=== PATIENT | male | born 1945 | race Caucasian/White ===

== ENCOUNTER 2016-11-23 06:31 | Emergency (ER) | payer OTHER, MEDICARE ==
[~2016-11-23] VITALS: Ht 188 cm; Wt 108.9 kg
[2016-11-23] MEDS ORDERED: SYNTHROID25 MCG PO (07:05)
--- NOTE | 2016-11-23 07:47 | ED GI/GU/ABDOMINAL COMPLAINT ---
History of Present Illness General Chief Complaint: Male Genitourinary Problems Stated Complaint: UNABLE TO URINATE X3 DAYS Source: patient Exam Limitations: no limitations Vital Signs & Intake/Output Vital Signs & Intake/Output Vital Signs Date Time Temp Pulse Resp B/P B/P Pulse O2 O2 Flow FiO2 Mean Ox Delivery Rate 11/23 0709 180/100 11/23 0640 96.6 87 19 192/104 96 Room Air Allergies Coded Allergies: Penicillins (HIVES 12/19/15) Uncoded Allergies: IVP DYE (HIVES 12/19/15) Reconcile Medications Levothyroxine Sodium (Synthroid) 25 MCG TABLET 1 TAB PO DAILY THYROID ( Reported) Triage Note: 71YO MALE TO RM 9 FROM TRIAGE W/CO DIFFICULTY URINATING X 3 DAYS. STATES "HE HAS BEEN DRIBBLING EVERY 1/2HR DURING THE NIGHT." Triage Nurses Notes Reviewed? yes Onset: Gradual Duration: day(s):, continues in ED, getting worse HPI: Patient presents for evaluation of trouble urinating over the past 3 days. Patient states that all he is been able to do is dribble urine overnight. He also experienced a suprapubic abdominal pain and fullness. He denies any prior episodes like this. He denies any known prostate issues. No associated fever or cold symptoms. Past History Travel History Traveled to [place] past 21 day No Medical History Any Pertinent Medical History? see below for history Endocrine: hypothyroidism Surgical History Surgical History: non-contributory Psychosocial History What is your primary language Luxembourger Tobacco Use: Refused to answer Family History Hx Contributory? No Review of Systems Review of Systems Constitutional: Reports: no symptoms. EENTM: Reports: no symptoms. Respiratory: Reports: no symptoms. Cardiovascular: Reports: no symptoms. GI: Reports: no symptoms. Genitourinary: Reports: see HPI. Musculoskeletal: Reports: no symptoms. Skin: Reports: no symptoms. Neurological/Psychological: Reports: no symptoms. Hematologic/Endocrine: Reports: no symptoms. Immunologic/Allergic: Reports: no symptoms. All Other Systems: Reviewed and Negative Physical Exam Physical Exam Gastrointestinal: see below Comments: Patient examined after Willams catheter placement Gen.: Well-nourished, well-developed, no acute respiratory distress. Head: Normocephalic, atraumatic. Eyes: Normal inspection bilaterally Ears: Normal inspection bilaterally Nose: Normal inspection Throat/mouth : Moist mucosa Neck: Supple, full range of motion, no goiter Heart: Regular rate and rhythm, no murmurs rubs or gallops Lungs: Clear to auscultation bilaterally with normal air entry Chest: Nontender Back: Normal range of motion Abdomen: Soft, nontender, nondistended, normal bowel sounds Extremities: Normal range of motion grossly, equal radial pulses, no cyanosis clubbing or edema Neurologic: Cranial nerves grossly intact, speech is clear Skin: warm and dry Psychiatric: Calm, cooperative, no apparent delusions or hallucinations Rectal: Somewhat large, nontender non-boggy prostate Core Measures ACS in differential dx? No Severe Sepsis Present: No Septic Shock Present: No Progress Differential Diagnosis: UTI/pyelo, prostate enlargement, prostatitis Plan of Care: Orders Procedure Date/time Status URINALYSIS 11/23 0656 Complete Laboratory Tests 11/23/16 0658: Urinalysis LIGHT H, Urine Color YEL, Urine Clarity CLEAR, Urine pH 6.5, Ur Specific [place] 1.010, Urine Protein TRACE H, Urine Ketones NEG, Urine Nitrite NEG, Urine Bilirubin NEG, Urine Urobilinogen 0.2, Ur Leukocyte Esterase NEG, Ur Microscopic SEDIMENT EXAMINED, Urine RBC 5-10 H, Ur Epithelial Cells RARE, Urine Bacteria MOD H, Urine Hemoglobin SMALL H, Urine Glucose NEG Initial ED EKG: none Departure Departure Disposition: HOME OR SELF CARE Condition: Stable Clinical Impression Primary Impression: Acute urinary retention Referrals: INDIGO WELCH,WILBERTO Pedro (PCP/Family) WES SELLERS MD Additional Instructions: Follow-up with the urologist listed for reevaluation on Saturday. Keep the Willams catheter in place until then. Notify your primary care doctor of this emergency department visit and treatment plan. Return if any concerns or sudden worsening. Thank you for choosing the [facility] Emergency Department for your care. It was a pleasure to serve you today. Lei Jones M.D. [facility] Departure Forms: Customer Survey General Discharge Information
[2016-11-23 07:52] VITALS: BP 170/70
== END 2016-11-23 08:05 ==
LOC: ERH 06:31
DX: R33.9 Retention of urine, unspecified (principal)
CPT/HCPCS: 81001

== ENCOUNTER 2016-11-27 11:25 | Inpatient (IN) | payer OTHER, MEDICARE ==
[~2016-11-27] VITALS: Ht 182.9 cm; Wt 108.9 kg
[~2016-11-27 11:25] MED LIST: SYNTHROID25 MCG PO
--- NOTE | 2016-11-27 11:31 | NUR ---
SENT BY MARLO BLANKENSHIP FOR ADMISSION (DX: UROSEPSIS) PT HAS STRICKLAND CATHETER IN PLACE, INSERTED BY DR. SELLERS TODAY. C/O RLQ ABDOMINAL PAIN, STATES HE WAS UNABLE TO URINATE X 5 DAYS.
--- NOTE | 2016-11-27 11:37 | NUR ---
MEDICATED FOR FEVER WITH MOTRIN 600 MG (PT REQUEST).
--- NOTE | 2016-11-27 11:49 | NUR ---
PT TO ROOM 10 VIA W/C. ASSISTED TO STRETCHER. AWAITING EVAL. Informed waiting has been performed.
--- NOTE | 2016-11-27 12:13 | NUR ---
LABS DRAWN AND SENT BY THIS MST BLUE, SST, LAV, PINK, BRANDON 1ST SET OF CULTURES
--- NOTE | 2016-11-27 12:16 | ED GI/GU/ABDOMINAL COMPLAINT ---
History of Present Illness General Chief Complaint: Male Genitourinary Problems Stated Complaint: UNABLE TO URINATE Source: patient, family, old records Exam Limitations: no limitations Allergies Coded Allergies: Penicillins (HIVES 12/19/15) Uncoded Allergies: IVP DYE (HIVES 12/19/15) Triage Note: SENT BY MARLO BLANKENSHIP FOR ADMISSION (DX: UROSEPSIS) PT HAS STRICKLAND CATHETER IN PLACE, INSERTED BY DR. VALENCIA TODAY. C/O RLQ ABDOMINAL PAIN, STATES HE WAS UNABELT O URINATE X 5 DAYS. Triage Nurses Notes Reviewed? yes Onset: Gradual Duration: day(s):, continues in ED, getting worse Quality/Severity: moderate, severe HPI: Patient presents at the request of his urologist for admission for urinary tract infection. Patient followed up with a urologist after an emergency department visit for acute urinary retention. The patient keeping the Strickland catheter in place at that point. Upon follow-up the urologist felt he was becoming infected due to chills/rigors during the examination. (LUCIA WELCH,NORMAN Nuñez) Vital Signs & Intake/Output Vital Signs & Intake/Output ED Intake and Output 12/01 0000 11/30 1200 Intake Total 300 Output Total 800 1300 Balance -800 -1000 Intake, Oral 300 Output, Urine 800 1300 Reconcile Medications Ciprofloxacin HCl (Cipro) 500 MG TABLET 500 MG PO BID ANTIBIOTIC, INFECTION Docusate Sodium 100 MG CAPSULE 100 MG PO BIDP CONSTIPATION Levothyroxine Sodium (Synthroid) 25 MCG TABLET 1 TAB PO DAILY THYROID ( Reported) Oxycodone HCl/Acetaminophen (Percocet 10-325 MG Tablet) 10 MG-325 MG TABLET 1 TAB PO 4 TIMES/DAY PAIN CONTROL Tamsulosin HCl (Flomax) 0.4 MG CAP.ER.24H 1 CAP PO BID PROSTATE (Reported) (LUANA WELCH,JOSE ENRIQUE Sethi) Past History Travel History Traveled to [place] past 21 day No Medical History Any Pertinent Medical History? see below for history Renal: benign prost hyperplasia Endocrine: hypothyroidism Surgical History Surgical History: non-contributory Psychosocial History What is your primary language Occitan Tobacco Use: Current Daily Use Daily Tobacco Use Amount/Type: => 5 Cigarettes daily ETOH Use: occasional use Family History Hx Contributory? No (LUCIA WELCH,NORMAN Nuñez) Review of Systems Review of Systems Constitutional: Reports: no symptoms. EENTM: Reports: no symptoms. Respiratory: Reports: no symptoms. Cardiovascular: Reports: no symptoms. GI: Reports: no symptoms. Genitourinary: Reports: see HPI. Musculoskeletal: Reports: no symptoms. Skin: Reports: no symptoms. Neurological/Psychological: Reports: no symptoms. Hematologic/Endocrine: Reports: no symptoms. Immunologic/Allergic: Reports: no symptoms. All Other Systems: Reviewed and Negative (LUCIA WELCH,NORMAN Nuñez) Physical Exam Physical Exam Gastrointestinal: see below Comments: Gen.: Well-nourished, well-developed, no acute respiratory distress. Head: Normocephalic, atraumatic. Eyes: Normal inspection bilaterally Ears: Normal inspection bilaterally Nose: Normal inspection Throat/mouth : Moist mucosa Neck: Supple, full range of motion, no goiter Heart: Regular rate and rhythm, no murmurs rubs or gallops Lungs: Clear to auscultation bilaterally with normal air entry Chest: Nontender Back: Normal range of motion Abdomen: Soft, nontender, nondistended, normal bowel sounds Extremities: Normal range of motion grossly, equal radial pulses, no cyanosis clubbing or edema Neurologic: Cranial nerves grossly intact, speech is clear Skin: warm and dry Psychiatric: Calm, cooperative, no apparent delusions or hallucinations Core Measures ACS in differential dx? No Severe Sepsis Present: No Septic Shock Present: No (LUCIA WELCH,NORMAN Nuñez) Progress Differential Diagnosis: UTI/pyelo Plan of Care: Orders Procedure Date/time Status Discharge Patient 11/30 UNK Active Initial ED EKG: NSR, rate (76) Comments: 1416: Patient treated with IV fluids, IV acetaminophen for fever and IV antibiotics for urinary tract infection with bacteremia. Patient has been evaluated by Dr. Valencia in the emergency department. Patient blood pressure remains normal and he has now defervesced. (LUCIA WELCH,NORMAN Nuñez) Comments: RECEIVED A CALL FROM LAB, 2:2 BLOOD CULTURES GNR. PT IS ON ABX (LUANA WELCH,JOSE ENRIQUE Sethi) Departure Departure Disposition: STILL A PATIENT Condition: Stable Clinical Impression Primary Impression: Urinary tract infection Qualifiers: Urinary tract infection type: site unspecified Hematuria presence: without hematuria Qualified Code: N39.0 - Urinary tract infection, site not specified Secondary Impressions: Bacteremia, Prostate enlargement Referrals: INDIGO WELCH,WILBERTO Pedro (PCP/Family) Departure Forms: Customer Survey General Discharge Information Admission Note Spoke With: WES VALENCIA MD Documentation of Exam: Documentation of any treatments & extenuating circumstances including Concerns Regarding Discharge (functional status, medication knowledge or non-compliance, living conditions, etc.) that warrant an admission rather than observation: Patient has had a second episode of acute urinary retention requiring Strickland catheter placement by his urologist. The patient also presents with a fever and a strong suspicion of a urinary tract infection with bacteremia. This places the patient at high risk of sepsis, overwhelming infection hypotension and . He requires an aggressive management with IV antibiotics continued Strickland catheterization and clinical monitoring of vital signs. The patient's urinary retention is very likely secondary to prostate enlargement and this will need to be addressed to prevent future urinary retention and infection. (LUCIA WELCH,NORMAN Nuñez) Departure Prescriptions: Current Visit Scripts Ciprofloxacin HCl (Cipro) 500 MG PO BID #30 Docusate Sodium 100 MG PO BIDP #30 Oxycodone HCl/Acetaminophen (Percocet 10-325 MG Tablet) 1 TAB PO 4 TIMES/DAY #20 TAB (LUANA WELCH,JOSE ENRIQUE Sethi) Critical Care Note Critical Care Note Critical Care Time: 30-74 min (LUCIA WELCH,NORMAN Nuñez) Laboratory Tests 11/27/16 1605: Anion Gap 9, Estimated GFR > 60, BUN/Creatinine Ratio 18.9, Lactic Acid 1.0 11/27/16 1444: Lactic Acid Cancelled 11/27/16 1205: Urinalysis LIGHT H, Urine Color YEL, Urine Clarity HAZY H, Urine pH 6.0, Ur Specific [place] 1.025, Urine Protein 100 H, Urine Ketones 15 H, Urine Nitrite POS H, Urine Bilirubin NEG, Urine Urobilinogen 1.0, Ur Leukocyte Esterase MOD H, Ur Microscopic SEDIMENT EXAMINED, Urine RBC 5-10 H, Urine WBC > 75 H, Ur Epithelial Cells FEW, Urine Bacteria MANY H, Urine Mucus RARE, Urine Hemoglobin MOD H, Urine Glucose NEG 11/27/16 1200: Anion Gap 9, Estimated GFR > 60, BUN/Creatinine Ratio 20.0, Glucose 112 H, Lactic Acid 1.3, Calcium 8.7, Total Bilirubin 0.9, AST 23, ALT 33, Alkaline Phosphatase 73, Total Protein 6.4, Albumin 3.5, Globulin 2.9, Albumin/Globulin Ratio 1.2, CBC w Diff MAN DIFF ORDERED, RBC 4.34 L, MCV 91.5, MCH 30.8, RDW 14.3, MPV 9.2, Gran % 90.2 H, Lymphocytes % 3.6 L, Monocytes % 6.0, Eosinophils % 0, Basophils % 0.2, Absolute Granulocytes 15.5 H, Segmented Neutrophils 91 H, Band Neutrophils 1, Absolute Lymphocytes 0.6 L, Lymphocytes 3 L, Monocytes 5, Absolute Monocytes 1.0 H, Absolute Eosinophils 0, Absolute Basophils 0, Platelet Estimate VERIFIED BY SMEAR, Normocytic RBCs VERIFIED, Normochromic RBCs VERIFIED, PUBS MCHC 33.7 Microbiology 11/27 1216 URINE ROUT: Urine Culture - ORD 11/27 120 BLOOD: Blood Culture - RECD 11/27 120 BLOOD: Blood Culture - RECD Initial ED EKG: NSR, rate (76) Comments: 1416: Patient treated with IV fluids, IV acetaminophen for fever and IV antibiotics for urinary tract infection with bacteremia. Patient has been evaluated by Dr. Valencia in the emergency department. Patient blood pressure remains normal and he has now defervesced. (LUCIA WELCH,NORMAN Nuñez) Comments: RECEIVED A CALL FROM LAB, 2:2 BLOOD CULTURES GNR. PT IS ON ABX (LUANA WELCH,JOSE ENRIQUE Sethi) Departure Departure Disposition: STILL A PATIENT Condition: Stable Clinical Impression Primary Impression: Urinary tract infection Qualifiers: Urinary tract infection type: site unspecified Hematuria presence: without hematuria Qualified Code: N39.0 - Urinary tract infection, site not specified Secondary Impressions: Bacteremia, Prostate enlargement Referrals: WILBERTO SOOD MD (PCP/Family) Departure Forms: Customer Survey General Discharge Information Admission Note Spoke With: WES VALENCIA MD Documentation of Exam: Documentation of any treatments & extenuating circumstances including Concerns Regarding Discharge (functional status, medication knowledge or non-compliance, living conditions, etc.) that warrant an admission rather than observation: Patient has had a second episode of acute urinary retention requiring Stirckland catheter placement by his urologist. The patient also presents with a fever and a strong suspicion of a urinary tract infection with bacteremia. This places the patient at high risk of sepsis, overwhelming infection hypotension and . He requires an aggressive management with IV antibiotics continued Strickland catheterization and clinical monitoring of vital signs. The patient's urinary retention is very likely secondary to prostate enlargement and this will need to be addressed to prevent future urinary retention and infection. (LUCIA WELCH,NORMAN Nuñez) Critical Care Note Critical Care Note Critical Care Time: 30-74 min (LUCIA WELCH,NORMAN Nuñez)
[2016-11-27 12:21] LABS: ABSOLUTE BASOPHIL COUNT 0 /CUMM (0.0-0.2); ABSOLUTE EOSINOPHIL COUNT 0 /CUMM (0.0-0.7); ABSOLUTE GRANULOCYTE CT 15.5 /CUMM (1.4-6.5); ABSOLUTE LYMPH COUNT 0.6 /CUMM (1.2-3.4); BASOPHIL % 0.2 % (0.0-2.0); EOSINOPHIL % 0 % (0-5); GRANULOCYTE % 90.2 % (42.2-75.2); HEMATOCRIT 39.7 % (42-52); MEAN CORPUSCULAR HGB 30.8 PG (27.0-31.0); MEAN CORPUSCULAR HGB CONC 33.7 G/DL (33.0-37.0); MEAN CORPUSCULAR VOLUME 91.5 FL (80.0-94.0); MEAN PLATELET VOLUME 9.2 FL (7.4-10.4); PLATELET COUNT 139 /CUMM (130-400); RBC DISTRIBUTION WIDTH 14.3 % (11.5-14.5); RED BLOOD CELL CT 4.34 /CUMM (4.70-6.10); WHITE BLOOD CELL COUNT 17.2 /CUMM (4.8-10.8)
[2016-11-27] MEDS ORDERED: FLOMAX0.4 M1 PO (12:55)
--- NOTE | 2016-11-27 13:05 | NUR ---
PT STATES HE TAKES FLOMAX BID, BREAKFAST AND DINNER TIME.
--- NOTE | 2016-11-27 13:14 | NUR ---
PT ASKING FOR LUNCH. OK TO EAT PER DR MYERS. LUNCH ORDERED.
--- NOTE | 2016-11-27 14:15 | NUR ---
PLAN IS FOR ADMISSION. Informed waiting has been performed. REMAINS AT BEDSIDE. PT TOLERATED LUNCH TRAY WELL.
--- NOTE | 2016-11-27 15:15 | NUR ---
REPORT HANDED OFF TO ELMER SAHNI.
--- NOTE | 2016-11-27 15:58 | NUR ---
MEAL TRAY DELIVERED
--- NOTE | 2016-11-27 16:12 | NUR ---
EKG , REPEAT LABS DONE
--- NOTE | 2016-11-27 16:23 | Cons- Urology ---
General Information and HPI Consulting Request Date of Consult: 11/27/16 Requested By: MD LUCIA, LORA Reason for Consult: UROSEPSIS WITH RIGORS/URINARY RETENTION Source of Information: patient, family, old records Exam Limitations: no limitations History of Present Illness: 71YR OLD WITH RECENT RETENTION: VT FAILED AND TAUGHT SELF CATH. TODAY NOTED FEVER/CHILLS/RIGOR WITH RETENTION. ADMIT FOR IV ABX, STRICKLAND AND HYDRATION. Allergies/Medications Allergies: Coded Allergies: Penicillins (HIVES 12/19/15) Uncoded Allergies: IVP DYE (HIVES 12/19/15) Home Med List: Levothyroxine Sodium (Synthroid) 25 MCG TABLET 1 TAB PO DAILY THYROID ( Reported) Tamsulosin HCl (Flomax) 0.4 MG CAP.ER.24H 1 CAP PO BID PROSTATE (Reported) Current Medications: Current Medications Sig/Cricket Start time Last Medication Dose Route Stop Time Status Admin Acetaminophen 650 MG Q6PRN PRN 11/27 1530 AC PO Acetaminophen 1,000 MG ONCE ONE 11/27 1245 DC 11/27 N/A 1 UNIT IV 11/27 1259 1250 Acetaminophen 0 .STK-MED ONE 11/27 1242 DC IV Al Hydroxide/Mg 30 ML Q6P PRN 11/27 1530 AC Hydroxide PO Ceftriaxone Sodium 0 .STK-MED ONE 11/27 1242 DC .ROUTE Ceftriaxone Sodium 1,000 MG ONCE ONE 11/27 1230 DC 11/27 IV 11/27 1231 1250 Dextrose/Sodium 1,000 ML .Q8H 11/27 1530 AC Chloride IV Docusate Sodium 100 MG DAILY 11/28 1000 AC PO Ibuprofen 600 MG ONCE ONE 11/27 1145 DC 11/27 PO 11/27 1146 1139 Levothyroxine Sodium 0.2 MG DAILY AC 11/28 0700 AC PO Morphine Sulfate 10 MG Q4P PRN 11/27 1530 AC IV Multivitamins 1 TAB DAILY 11/27 1523 AC PO Sodium Chloride 1,000 ML BOLUS ONE 11/27 1230 DC 11/27 IV 11/27 1429 1228 Trimethoprim/ 10 ML ONCE ONE 11/27 1215 CAN Sulfamethoxazole IV 11/27 1216 Zolpidem Tartrate 5 MG AT BEDTIME NEED.. 11/27 1530 AC PO Past History Medical History Blood Transfusion Hx: No Renal: benign prost hyperplasia Endocrine: hypothyroidism Surgical History Pertinent Surgical History: non-contributory Psychosocial History Where Do You Live? Home Who Do You Live With? spouse Services at Home: None Primary Language: Wallisian Smoking Status: Never Smoked ETOH Use: occasional use Functional Ability ADLs Independent: dressing, eating, toileting, bathing. Ambulation: independent IADLs Independent: shopping, housework, finances, food prep, telephone, transportation , medication admin. Employment History Employment: Retired Retired? unknown Review of Systems Review of Systems Constitutional: Reports: see HPI, chills, diaphoresis, fever, weakness. EENTM: Denies: no symptoms. Cardiovascular: Denies: no symptoms. Respiratory: Denies: no symptoms. GI: Denies: no symptoms. Genitourinary: Reports: see HPI, dysuria, hesitation, pain. Musculoskeletal: Reports: muscle pain, muscle stiffness. Skin: Reports: see HPI. Exam & Diagnostic Data Vital Signs and I&O Vital Signs Date Time Temp Pulse Resp B/P B/P Pulse O2 O2 Flow FiO2 Mean Ox Delivery Rate 11/27 1618 98.4 73 20 118/57 96 Room Air 11/27 1413 99.3 84 20 98/62 94 Room Air 11/27 1320 100.8 11/27 1320 100.8 11/27 1250 102.0 11/27 1229 102.0 11/27 1228 102.0 11/27 1139 101.3 11/27 1132 101.3 118 20 153/81 95 Room Air Intake & Output 11/27 1600 11/27 0800 11/27 0000 / 1600 11/26 0800 11/26 0000 Intake Total Output Total 500 Balance -500 Output, Urine 500 Patient 240 lb Weight Weight Reported by Patient Measurement Method Physical Exam General Appearance: well developed/nourished, moderate distress Head: atraumatic Eyes: Bilateral: normal appearance. Ears, Nose, Throat: normal pharynx Neck: normal inspection, supple, full range of motion Respiratory: normal breath sounds Cardiovascular: regular rate/rhythm Rectal: normal exam Back: no vertebral tenderness Extremities: normal inspection Skin: intact, normal color, diaphoresis Reproductive: Normal male genitalia Last 24 Hours of Labs: Laboratory Tests 11/27 11/27 11/27 1605 1444 1205 Chemistry Sodium Pending Potassium Pending Chloride Pending Carbon Dioxide Pending Anion Gap Pending BUN Pending Creatinine Pending BUN/Creatinine Ratio Pending Lactic Acid Pending Cancelled Urines Urinalysis LIGHT H Urine Color (YEL,AMB,STR) YEL Urine Clarity (CLEAR) HAZY H Urine pH (5.0 - 8.0) 6.0 Ur Specific [place] (1.001 - 1.035) 1.025 Urine Protein (NEG,<30 MG/DL) 100 H Urine Ketones (NEG) 15 H Urine Nitrite (NEG) POS H Urine Bilirubin (NEG) NEG Urine Urobilinogen (0.1 - 1.0 EU/dl) 1.0 Ur Leukocyte Esterase (NEG) MOD H Ur Microscopic SEDIMENT EXAMINED Urine RBC (0 - 5 /HPF) 5-10 H Urine WBC (0 - 2 /HPF) > 75 H Ur Epithelial Cells (NONE,FEW) FEW Urine Bacteria (NEG/NONE) MANY H Urine Mucus (FEW,NONE) RARE Urine Hemoglobin (NEG) MOD H Urine Glucose (N MG/DL) NEG 11/27 1200 Chemistry Sodium (137 - 145 mmol/L) 135 L Potassium (3.5 - 5.1 mmol/L) 3.8 Chloride (98 - 107 mmol/L) 103 Carbon Dioxide (22 - 30 mmol/L) 24 Anion Gap (5 - 16) 9 BUN (9 - 20 mg/dL) 18 Creatinine (0.7 - 1.2 mg/dL) 0.9 Estimated GFR (>60 ml/min) > 60 BUN/Creatinine Ratio (7 - 25 %) 20.0 Glucose (65 - 99 mg/dL) 112 H Lactic Acid (0.7 - 2.1 mmol/L) 1.3 Calcium (8.4 - 10.2 mg/dL) 8.7 Total Bilirubin (0.2 - 1.3 mg/dL) 0.9 AST (17 - 59 U/L) 23 ALT (21 - 72 U/L) 33 Alkaline Phosphatase (< 127 U/L) 73 Total Protein (6.3 - 8.2 g/dL) 6.4 Albumin (3.5 - 5.0 g/dL) 3.5 Globulin (1.9 - 4.2 gm/dL) 2.9 Albumin/Globulin Ratio (1.1 - 2.2 %) 1.2 Hematology CBC w Diff MAN DIFF ORDERED WBC (4.8 - 10.8 /CUMM) 17.2 H RBC (4.70 - 6.10 /CUMM) 4.34 L Hgb (14.0 - 18.0 G/DL) 13.4 L Hct (42 - 52 %) 39.7 L MCV (80.0 - 94.0 FL) 91.5 MCH (27.0 - 31.0 PG) 30.8 RDW (11.5 - 14.5 %) 14.3 Plt Count (130 - 400 /CUMM) 139 MPV (7.4 - 10.4 FL) 9.2 Gran % (42.2 - 75.2 %) 90.2 H Lymphocytes % (20.5 - 51.1 %) 3.6 L Monocytes % (1.7 - 9.3 %) 6.0 Eosinophils % (0 - 5 %) 0 Basophils % (0.0 - 2.0 %) 0.2 Absolute Granulocytes (1.4 - 6.5 /CUMM) 15.5 H Segmented Neutrophils (42.2 - 75.2 %) 91 H Band Neutrophils (0.0 - 5.0 %) 1 Absolute Lymphocytes (1.2 - 3.4 /CUMM) 0.6 L Lymphocytes (20.5 - 51.1 %) 3 L Monocytes (1.7 - 9.3 %) 5 Absolute Monocytes (0.10 - 0.60 /CUMM) 1.0 H Absolute Eosinophils (0.0 - 0.7 /CUMM) 0 Absolute Basophils (0.0 - 0.2 /CUMM) 0 Platelet Estimate (ADEQUATE) VERIFIED BY SMEAR Normocytic RBCs VERIFIED Normochromic RBCs VERIFIED PUBS MCHC (33.0 - 37.0 G/DL) 33.7 Assessment/Plan Assessment/Plan UROSEPSIS: RIGORS: ADMIT FOR IV ABX/HYDRATION Copies To: WES SELLERS MD Consult Acknowledgment - Thank you for your consult request. Attending MD Review Statement Attending Statement Attending MD Statement: examined this patient Attending Assessment/Plan: UROSEPSIS WITH RETENTION
--- NOTE | 2016-11-27 16:30 | NUR ---
PT TO US VIA STRETCHER,
--- NOTE | 2016-11-27 17:31 | ULTRASOUND REPORT ---
EXAMINATION: US RETROPERITONEAL COMPLETE (RENAL) CLINICAL INFORMATION: Fever and rigors. COMPARISON: None. TECHNIQUE: Real-time imaging of the kidneys and bladder. FINDINGS: RIGHT KIDNEY: 12.1 x 8.2 x 7.2 cm (SAG x AP x TRV). The kidney is normal in size, contour, and echogenicity. Renal cortical thickness is normal. No calculi or focal parenchymal lesions. No hydronephrosis. LEFT KIDNEY: 12.9 x 6.5 x 5.5 cm (SAG x AP x TRV). The kidney is normal in size, contour, and echogenicity. Renal cortical thickness is normal. No calculi or focal parenchymal lesions. No hydronephrosis. BLADDER: The urinary bladder is decompressed by an indwelling Willams catheter, limiting evaluation. Bladder wall thickening is entirely nonspecific and may be secondary to underdistention although superimposed infection or inflammation of the urinary bladder cannot be excluded given patient symptomatology. PROSTATE: The prostate gland measures approximately 5.3 x 6.2 x 5.2 cm, corresponding to a volume of 88.5 mL. IMPRESSION: 1. The bilateral kidneys appear unremarkable. There is no appreciable hydronephrosis of either kidney. 2. The urinary bladder is decompressed by an indwelling Willams catheter, limiting evaluation. 3. Prominent prostate gland measuring 5.3 x 6.2 x 5.2 cm.
--- NOTE | 2016-11-27 19:17 | NUR ---
REPORT RECIEVED FROM ELMER WILLIAM, PRIMARY CARE ASSUMED. PT MEDICATED WITH 1 MULTIVITAMIN TAB, TOLERATED WELL.
--- NOTE | 2016-11-27 19:36 | NUR ---
PT MEDICATED WITH D5 1/2 NS AT 125MLS/HR PER EMAR
--- NOTE | 2016-11-27 20:25 | NUR ---
INFORMED BY ELICEO LINARES THAT PT TEMP IS 100.2, HOUSE STAFF NOTIFIED
--- NOTE | 2016-11-28 04:26 | NUR ---
[address] CRAFT THAT PT'S URINE CULTURE GROWING GRAM NEGATIVE RODS
[2016-11-28 07:52] VITALS: BP 138/64
--- NOTE | 2016-11-28 09:30 | NUR ---
NOTIFIED DR SELLERS OF ORAL TEMP = 100.8. PER ATTENDING GIVE TYLENOL PO AT THIS TIME.
--- NOTE | 2016-11-28 11:05 | Cons- Infect Disease ---
General Information and HPI Consulting Request Date of Consult: 11/28/16 Requested By: WES SELLERS MD Reason for Consult: Sepsis of urologic origin Source of Information: patient, old records Exam Limitations: confusion History of Present Illness: This is a 71-year-old man with a history of hypothyroidism, seen in the emergency room 4 days prior to admission because of difficulty voiding, with insertion of a Willams catheter yielding 1100 mL, with urinalysis revealing 5-10 RBC's, discharged without a Willams catheter secondary to patient's request, seen by Urology as an outpatient and instructed to self catheterize, admitted on November 27 after he was referred back to the emergency room because of right lower quadrant pain and rigors, with a Willams catheter inserted by his urologist earlier in the day. On admission he was febrile to 101.3. Laboratory data revealed a white blood cell count of 17,000, BUN/creatinine 18 and 0.9, with normal liver enzymes. Urinalysis 5-10 RBC/greater than 75 WBCs. A renal ultrasound revealed a prominent prostate with no hydronephrosis. He was begun on Ceftriaxone. He did spike to 103.8 overnight but his temperatures are lower grade this morning. He feels improved with decreased abdominal discomfort but does note right scrotal pain and swelling. Allergies/Medications Allergies: Coded Allergies: Penicillins (HIVES 12/19/15) Uncoded Allergies: IVP DYE (HIVES 12/19/15) Home Med List: Levothyroxine Sodium (Synthroid) 25 MCG TABLET 1 TAB PO DAILY THYROID ( Reported) Tamsulosin HCl (Flomax) 0.4 MG CAP.ER.24H 1 CAP PO BID PROSTATE (Reported) Past History Travel History Traveled to [place] past 21 day No Medical History Blood Transfusion Hx: No Endocrine: hypothyroidism History of MRSA: No History of VRE: No History of CDIFF: No Isolation History: Standard Surgical History Surgical History: right upper ext surgery, pilonidal cyst Psychosocial History Where Do You Live? Home Who Do You Live With? spouse Services at Home: None Primary Language: Azeri Smoking Status: Never Smoked ETOH Use: occasional use Functional Ability ADLs Independent: dressing, eating, toileting, bathing. Ambulation: independent IADLs Independent: shopping, housework, finances, food prep, telephone, transportation , medication admin. Employment History Employment: Retired Review of Systems Review of Systems Cardiovascular: Denies: chest pain. Respiratory: Denies: cough, short of breath. GI: Denies: diarrhea, nausea, vomiting. Genitourinary: Reports: hesitation. Denies: dysuria. All Other Systems: Reviewed and Negative Exam & Diagnostic Data Last 24 Hrs of Vital Signs/I&O Vital Signs Date Time Temp Pulse Resp B/P B/P Pulse O2 O2 Flow FiO2 Mean Ox Delivery Rate 11/28 0939 100.8 11/28 0752 100.8 86 20 138/64 95 Room Air 11/28 0242 Room Air 11/28 0238 100.8 11/28 0010 103.8 11/27 2023 100.2 86 20 155/70 95 Room Air 11/27 1618 98.4 73 20 118/57 96 Room Air 11/27 1413 99.3 84 20 98/62 94 Room Air 11/27 1320 100.8 11/27 1320 100.8 11/27 1250 102.0 11/27 1229 102.0 11/27 1228 102.0 11/27 1139 101.3 11/27 1132 101.3 118 20 153/81 95 Room Air Intake & Output 11/28 1600 11/28 0800 11/28 0000 Intake Total 1010 Output Total 700 1100 Balance 310 -1100 Intake, IV 1010 Output, Urine 700 1100 Patient 239 lb Weight Weight Reported by Patient Measurement Method Physical Exam Other Physical Findings: He is awake and alert in no acute distress. MAXIMUM TEMPERATURE 103.8. Skin reveals no rash. HEENT exam is negative. Neck is supple with no adenopathy. Lungs bibasilar crackles. Heart regular rhythm with no murmur. Abdomen is obese, soft, mild tenderness over the right lower quadrant/suprapubic area, with positive bowel sounds. Back no CVA tenderness. Extremities no cyanosis, clubbing or edema. Neuro is without focality. right scrotal swelling and tenderness. Last 24 Hours of Lab Results: Laboratory Tests 11/28 11/27 11/27 0604 1605 1444 Chemistry Sodium (137 - 145 mmol/L) 136 L 138 Potassium (3.5 - 5.1 mmol/L) 3.6 3.7 Chloride (98 - 107 mmol/L) 105 106 Carbon Dioxide (22 - 30 mmol/L) 24 23 Anion Gap (5 - 16) 8 9 BUN (9 - 20 mg/dL) 16 17 Creatinine (0.7 - 1.2 mg/dL) 0.9 0.9 Estimated GFR (>60 ml/min) > 60 > 60 BUN/Creatinine Ratio (7 - 25 %) 17.8 18.9 Lactic Acid (0.7 - 2.1 mmol/L) 1.0 Cancelled 11/27 1205 Urines Urinalysis LIGHT H Urine Color (YEL,AMB,STR) YEL Urine Clarity (CLEAR) HAZY H Urine pH (5.0 - 8.0) 6.0 Ur Specific Currie (1.001 - 1.035) 1.025 Urine Protein (NEG,<30 MG/DL) 100 H Urine Ketones (NEG) 15 H Urine Nitrite (NEG) POS H Urine Bilirubin (NEG) NEG Urine Urobilinogen (0.1 - 1.0 EU/dl) 1.0 Ur Leukocyte Esterase (NEG) MOD H Ur Microscopic SEDIMENT EXAMINED Urine RBC (0 - 5 /HPF) 5-10 H Urine WBC (0 - 2 /HPF) > 75 H Ur Epithelial Cells (NONE,FEW) FEW Urine Bacteria (NEG/NONE) MANY H Urine Mucus (FEW,NONE) RARE Urine Hemoglobin (NEG) MOD H Urine Glucose (N MG/DL) NEG 11/27 1200 Chemistry Sodium (137 - 145 mmol/L) 135 L Potassium (3.5 - 5.1 mmol/L) 3.8 Chloride (98 - 107 mmol/L) 103 Carbon Dioxide (22 - 30 mmol/L) 24 Anion Gap (5 - 16) 9 BUN (9 - 20 mg/dL) 18 Creatinine (0.7 - 1.2 mg/dL) 0.9 Estimated GFR (>60 ml/min) > 60 BUN/Creatinine Ratio (7 - 25 %) 20.0 Glucose (65 - 99 mg/dL) 112 H Lactic Acid (0.7 - 2.1 mmol/L) 1.3 Calcium (8.4 - 10.2 mg/dL) 8.7 Total Bilirubin (0.2 - 1.3 mg/dL) 0.9 AST (17 - 59 U/L) 23 ALT (21 - 72 U/L) 33 Alkaline Phosphatase (< 127 U/L) 73 Total Protein (6.3 - 8.2 g/dL) 6.4 Albumin (3.5 - 5.0 g/dL) 3.5 Globulin (1.9 - 4.2 gm/dL) 2.9 Albumin/Globulin Ratio (1.1 - 2.2 %) 1.2 Hematology CBC w Diff MAN DIFF ORDERED WBC (4.8 - 10.8 /CUMM) 17.2 H RBC (4.70 - 6.10 /CUMM) 4.34 L Hgb (14.0 - 18.0 G/DL) 13.4 L Hct (42 - 52 %) 39.7 L MCV (80.0 - 94.0 FL) 91.5 MCH (27.0 - 31.0 PG) 30.8 RDW (11.5 - 14.5 %) 14.3 Plt Count (130 - 400 /CUMM) 139 MPV (7.4 - 10.4 FL) 9.2 Gran % (42.2 - 75.2 %) 90.2 H Lymphocytes % (20.5 - 51.1 %) 3.6 L Monocytes % (1.7 - 9.3 %) 6.0 Eosinophils % (0 - 5 %) 0 Basophils % (0.0 - 2.0 %) 0.2 Absolute Granulocytes (1.4 - 6.5 /CUMM) 15.5 H Segmented Neutrophils (42.2 - 75.2 %) 91 H Band Neutrophils (0.0 - 5.0 %) 1 Absolute Lymphocytes (1.2 - 3.4 /CUMM) 0.6 L Lymphocytes (20.5 - 51.1 %) 3 L Monocytes (1.7 - 9.3 %) 5 Absolute Monocytes (0.10 - 0.60 /CUMM) 1.0 H Absolute Eosinophils (0.0 - 0.7 /CUMM) 0 Absolute Basophils (0.0 - 0.2 /CUMM) 0 Platelet Estimate (ADEQUATE) VERIFIED BY SMEAR Normocytic RBCs VERIFIED Normochromic RBCs VERIFIED PUBS MCHC (33.0 - 37.0 G/DL) 33.7 Last 24 Hours of Rudolph Results: Blood culture 2 November 27 1 bottle positive for gram-negative rods Urine culture November 27 greater than 100,000 colonies of gram-negative rods Diagnostic Data Recent Imaging Findings: Renal ultrasound November 27 reveals a prominent prostate with no hydronephrosis Assessment/Plan Assessment/Plan Impression: This is a 71-year-old man with a history of hypothyroidism admitted on November 27 with urinary retention, for which a Willams catheter was inserted by his urologist earlier in the day, right lower quadrant abdominal pain and rigors, found to be febrile with leukocytosis and now found to have blood and urine cultures positive for gram-negative rods. His clinical picture is consistent with sepsis of urologic origin. He does have right scrotal inflammation raising concern for an epididymoorchitis, which may warrant further evaluation. He also have bibasilar crackles and a chest x-ray should be obtained. Suggestion: 1. Ultrasound of the scrotum 2. Would obtain a chest x-ray 3. Follow-up final cultures 4. Continue Ceftriaxone 1 g IV every 24 hours pending above Consult Acknowledgment - Thank you for your consult request.
--- NOTE | 2016-11-28 13:55 | NUR ---
TO XRAY FOR CXR. SPOUSE AND PATIENT NOTIFIED OF PLAN OF CARE.
--- NOTE | 2016-11-28 14:15 | RADIOLOGY REPORT ---
EXAMINATION: XR CHEST CLINICAL INFORMATION: Sepsis. COMPARISON: 01/07/2012 TECHNIQUE: 2 views of the chest were obtained. FINDINGS: Lungs are well expanded and clear. No evidence of pneumonia or pleural effusion. Cardiac silhouette is normal in size. Mediastinal, hilar and diaphragmatic contours are normal. The bones are unremarkable. IMPRESSION: No acute cardiopulmonary disease.
--- NOTE | 2016-11-28 14:57 | ULTRASOUND REPORT ---
EXAMINATION: US SCROTUM CLINICAL INFORMATION: Right-sided scrotal mass. Epididymitis. COMPARISON: None TECHNIQUE: A sonogram of the scrotum was performed assessing marino-scale appearance and color Doppler flow. FINDINGS: RIGHT: The right testicle, which is larger than the left, measures 4.2 x 3 x 3.5 cm, volume of 31 mL. Color Doppler images show diffuse hypervascularity of the testicle, consistent with orchitis. No focal testicular lesion. The epididymis is diffusely thickened, heterogeneous and hypervascular, consistent with epididymitis. Small, 0.4 cm cyst is present within the epididymal head. A moderate right hydrocele contains multiple septations. LEFT: The left testicle measures 4.3 x 2.2 x 2.7 cm, volume of 18 mL. Color Doppler images with spectral waveforms show presence of normal arterial flow within the testicle. No focal testicular lesion. A 0.5 cm cyst is present within the left epididymal head. Otherwise, the left epididymis is unremarkable. Small left hydrocele is noted. IMPRESSION: 1. Right-sided epididymoorchitis associated with a complex hydrocele or pyocele. 2. Small cysts within each epididymal head (0.4 cm on the right and 0.5 cm on the left).
[2016-11-28 16:45] VITALS: BP 146/65
--- NOTE | 2016-11-28 21:16 | NUR ---
PT HAS A BED 225-1
[2016-11-28 21:17] VITALS: BP 146/73
[2016-11-28 22:31] VITALS: BP 140/70
--- NOTE | 2016-11-28 22:51 | NUR ---
PATEINT ADMITTED VIA STRETCHER. ORIENTED TO ROOM , CALL MYERS, STAFF ETC. A/O X 3. RA. LCTA. SKIN CDI. STRICKLAND. IV FLUIDS RUNNING ORDERED. VSS. WILL CONTINUE TO MONITOR.
[2016-11-29 06:25] VITALS: BP 146/80
[2016-11-29 08:23] LABS: ABSOLUTE BASOPHIL COUNT 0 /CUMM (0.0-0.2); ABSOLUTE EOSINOPHIL COUNT 0.4 /CUMM (0.0-0.7); ABSOLUTE GRANULOCYTE CT 7.3 /CUMM (1.4-6.5); BASOPHIL % 0.3 % (0.0-2.0); EOSINOPHIL % 3.8 % (0-5); GRANULOCYTE % 74.6 % (42.2-75.2); HEMATOCRIT 35.4 % (42-52); MEAN CORPUSCULAR HGB 31.2 PG (27.0-31.0); MEAN CORPUSCULAR HGB CONC 33.9 G/DL (33.0-37.0); MEAN PLATELET VOLUME 9.8 FL (7.4-10.4); PLATELET COUNT 130 /CUMM (130-400); RBC DISTRIBUTION WIDTH 14.3 % (11.5-14.5); RED BLOOD CELL CT 3.85 /CUMM (4.70-6.10); WHITE BLOOD CELL COUNT 9.8 /CUMM (4.8-10.8)
--- NOTE | 2016-11-29 14:01 | PN- Urology ---
Surgical Brief Attending Note Brief Attending Note: PT WITH PAIN AND NO FEVER OVERNIGHT; VOIDING WELL. LIKELY DC HOME IN AM.
--- NOTE | 2016-11-29 15:13 | PN- Infect Dx ---
Subjective Subjective: MAXIMUM TEMPERATURE 103.2. He feels improved today with no complaints at this time. Objective Last 24 Hrs of Vital Signs/I&O Vital Signs Date Time Temp Pulse Resp B/P B/P Pulse O2 O2 Flow FiO2 Mean Ox Delivery Rate 11/29 0800 Room Air 11/29 0625 98.6 71 20 146/80 94 Room Air / 2240 98.7 / 2231 98.4 66 20 140/70 95 Room Air / 2117 99.4 80 16 146/73 97 Room Air / 1830 100.0 / 1729 103.2 / 1645 101.9 86 20 146/65 94 Room Air Intake & Output 11/29 1600 11/29 0800 0608 0000 Intake Total 1000 125 Output Total 800 800 Balance 200 -675 Intake, IV 1000 125 Number 0 Bowel Movements Output, Urine 800 800 Patient 240 lb Weight Physical Exam Other Physical Findings: He appears comfortable in no acute distress Lungs crackles at the left base Heart regular rhythm with no murmur Abdomen soft, nontender with positive bowel sounds Back no CVA tenderness right scrotal swelling, with no tenderness on palpation; Willams catheter remains in place Results Last 24 Hours of Lab Results: Laboratory Tests 11/29 0515 Chemistry Sodium (137 - 145 mmol/L) 138 Potassium (3.5 - 5.1 mmol/L) 3.4 L Chloride (98 - 107 mmol/L) 106 Carbon Dioxide (22 - 30 mmol/L) 24 Anion Gap (5 - 16) 9 BUN (9 - 20 mg/dL) 14 Creatinine (0.7 - 1.2 mg/dL) 0.8 Estimated GFR (>60 ml/min) > 60 BUN/Creatinine Ratio (7 - 25 %) 17.5 Hematology CBC w Diff NO MAN DIFF REQ WBC (4.8 - 10.8 /CUMM) 9.8 RBC (4.70 - 6.10 /CUMM) 3.85 L Hgb (14.0 - 18.0 G/DL) 12.0 L Hct (42 - 52 %) 35.4 L MCV (80.0 - 94.0 FL) 92.0 MCH (27.0 - 31.0 PG) 31.2 H RDW (11.5 - 14.5 %) 14.3 Plt Count (130 - 400 /CUMM) 130 MPV (7.4 - 10.4 FL) 9.8 Gran % (42.2 - 75.2 %) 74.6 Lymphocytes % (20.5 - 51.1 %) 10.7 L Monocytes % (1.7 - 9.3 %) 10.6 H Eosinophils % (0 - 5 %) 3.8 Basophils % (0.0 - 2.0 %) 0.3 Absolute Granulocytes (1.4 - 6.5 /CUMM) 7.3 H Absolute Lymphocytes (1.2 - 3.4 /CUMM) 1.0 L Absolute Monocytes (0.10 - 0.60 /CUMM) 1.0 H Absolute Eosinophils (0.0 - 0.7 /CUMM) 0.4 Absolute Basophils (0.0 - 0.2 /CUMM) 0 PUBS MCHC (33.0 - 37.0 G/DL) 33.9 Last 24 Hours of Rudolph Results: Blood cultures November 27 one bottle positive for gram-negative rods Urine culture November 27 (sent from Dr. Valencia's office) greater than 100,000 colonies of Escherichia coli sensitive to all antibiotics tested Urine culture November 27 (sent from the ER) approximately 15,000 colonies of Escherichia coli Recent Imaging Studies: Testicular ultrasound November 28 reveals a right-sided epididymoorchitis with a complex hydrocele or pyocele; small cysts within each epididymal head Chest x-ray November 28 negative Assessment/Plan Impression: Improving with temperatures and white blood cell count decreasing on Ceftriaxone now Day 2 of treatment for Escherichia coli sepsis of urologic origin. His ultrasound does reveal findings consistent with epididymoorchitis. Suggestion: 1. Further management regarding the ultrasound findings and Willams catheter per Urology 2. Continue Ceftriaxone pending above, with eventual change to Bactrim DS 1 po every 12 hours to complete a 14 day course of treatment
[2016-11-29 15:40] VITALS: BP 140/80
--- NOTE | 2016-11-29 15:50 | NUR ---
PT REPORTING MILD DISCOMFORT IN SUPRAPUBIC REGION, REQUESTING TO SEE DR. SELLERS FOR UPDATE ON PLAN OF CARE. THIS RN CALLED DR. SELLERS AT [phone] TO REQUEST HIS PRESENCE FOR THE PT PT IS NOT INFORMED ON PLAN OF CARE AND HAS QUESTIONS. DR. SELLERS SAID HE WOULD BE "UP SOON" TO EVALUATE PT AND PROVIDE UPDATE ON PLAN OF CARE. AT CHANGE OF SHIFT MD HAS STILL NOT BEEN AT BEDSIDE TO EVALUATE PT BUT PLACED ORDERS TO RENEW STRICKLAND AND COLLECT URINE/BLOOD SAMPLES. STILL AWAITING VISIT FROM DR. SELLERS. SAFETY MAINTAINED AT THIS TIME, NEEDS IN REACH.
[2016-11-29 21:59] VITALS: BP 156/72
[2016-11-30 06:35] VITALS: BP 144/78
[2016-11-30] MEDS ORDERED: CIPRO500 M1 PO (07:47)
[2016-11-30] MEDS ORDERED: DOCUSATE SODIU100 M3 PO (07:47)
--- NOTE | 2016-11-30 07:49 | PN- Urology ---
Surgical Brief Attending Note Brief Attending Note: overall feeling better: vss afebrile >24 hours: cultures pending for dc on po meds.
[2016-11-30] MEDS ORDERED: PERCOCET 10-321 EACH PO (13:57)
--- NOTE | 2016-11-30 15:30 | PN- Infect Dx ---
Subjective Subjective: Afebrile. He still notes discomfort in the right scrotum Objective Last 24 Hrs of Vital Signs/I&O Vital Signs Date Time Temp Pulse Resp B/P B/P Pulse O2 O2 Flow FiO2 Mean Ox Delivery Rate 11/30 0635 99.0 60 20 144/78 96 Room Air 11/29 2159 98.4 63 20 156/72 95 Room Air 11/29 1540 98.4 68 20 140/80 95 Intake & Output 11/30 1600 11/30 0800 11/30 0000 Intake Total 300 Output Total 650 650 750 Balance -650 -350 -750 Intake, Oral 300 Output, Urine 650 650 750 Physical Exam Other Physical Findings: He appears comfortable in no acute distress right scrotal swelling, erythema and tenderness persists; Willams catheter remains in place Results Last 24 Hours of Lab Results: No labs from today Last 24 Hours of Rudolph Results: Blood culture November 27 positive for Escherichia coli sensitive to all antibiotics Assessment/Plan Impression: Improving with temperatures and white blood cell count normal on Ceftriaxone now Day 3 of treatment for Escherichia coli sepsis of urologic origin. His ultrasound does reveal findings consistent with epididymoorchitis, and he continues to have inflammation in the right scrotum consistent with this diagnosis. He has apparently been switched to Ciprofloxacin today. Suggestion: 1. Further management regarding the ultrasound findings and Willams catheter per Urology 2. Discontinue Ceftriaxone 3. Can continue Ciprofloxacin to complete a 14 day course of antibiotics
--- NOTE | 2016-12-06 11:34 | Surgical Discharge Summary ---
Visit Information Visit Dates Admission Date: 11/27/16 Discharge Date: 11/30/16 History of Present Illness Chief Complaint: 71 year old with acute prostatitis, right epididymo-orchitis: admitted for sepsis/bacteremia: required swann, IV hydration and abx. Medical History Blood Transfusion Hx: No Renal: benign prost hyperplasia Endocrine: hypothyroidism History of MRSA: No History of VRE: No History of CDIFF: No Isolation History: Standard Surgical History Pertinent Surgical History: non-contributory Psychosocial History Where Do You Live? Home Who Do You Live With? Spouse Services at Home: None What is Your Primary Language? Swedish ETOH Use: occasional use Review of Systems: n/c x 12 except above Hospital Course Course Attending Physician: WES SELLERS MD Primary Care Physician: WILBERTO SOOD MD Hospital Course: iv hydration and abx with quick recovery from rigor/sepsis: dc home on po cipro Complications: none Allergies: Coded Allergies: Penicillins (HIVES 12/19/15) Uncoded Allergies: IVP DYE ([facility] 12/19/15) Significant Procedures: IV abx, no invasive surgery Disposition Summary Disposition Principal Diagnosis: urinary sepsis Additional Diagnosis: epididymo-orchitis acute Discharge Disposition: hospice - home Discharge Instructions General Discharge Information Code Status: Full Code Patient's Diet: regular Patient's Activity: as tolerate Follow-Up Instructions/Appts: f/u 1 week. Medications at Discharge Discharge Medications: Continue taking these medications: Levothyroxine Sodium (Synthroid) 25 MCG TABLET 1 Tablet ORAL DAILY Comments: Last Taken: 11/30/16 Time: 6 AM Tamsulosin HCl (Flomax) 0.4 MG CAP.ER.24H 1 Capsule ORAL TWICE DAILY Comments: NOT GIVEN AT HOSPITAL Start taking the following new medications: Ciprofloxacin HCl (Cipro) 500 MG TABLET 500 Milligram ORAL TWICE DAILY Qty = 30 No Refills Comments: Last Taken: 11/30 Time: 9 AM Docusate Sodium (Docusate Sodium) 100 MG CAPSULE 100 Milligram ORAL 2 x Daily as needed Qty = 30 No Refills Comments: Last Taken: 11/30 Time: 9 AM Oxycodone HCl/Acetaminophen (Percocet 10-325 MG Tablet) 10 MG-325 MG TABLET 1 Tablet ORAL 4 TIMES A DAY Qty = 20 No Refills Comments: Last Taken: NOT GIVEN AT HOSPITAL Time: Copies To: WES SELLERS MD
== END 2016-11-30 15:33 | DRG 872 ==
LOC: ERH 11:25 → 2NA 14:19 → ERHI 14:19 → ENRESERV 23:51 → ERHI 11-28 10:51 → ENRESERV 11-28 20:53 → ENTRNSPT 11-28 21:32 → 2NA 11-28 22:15 → CMPTRNSPT 11-29 07:10 → ENPENDDIS 11-30 14:01 → 2NA 11-30 15:33
PROVIDERS: Physician Assistant; ADMIT Urology
DX: A41.51 Sepsis due to Escherichia coli [E. coli] (principal); N39.0 Urinary tract infection, site not specified; R33.9 Retention of urine, unspecified; E03.9 Hypothyroidism, unspecified; N40.0 Benign prostatic hyperplasia without lower urinary tract symptoms; N45.3 Epididymo-orchitis
CPT/HCPCS: 2NAP; ERO; 36415; 76775; 81001; 82436; 87040; 87086; 93005; 93010; 96361; 96374; 96375; J0131; J0696; J7042